=== PATIENT | male | born 1965 | race Caucasian/White ===

== ENCOUNTER 2016-09-13 20:21 | Emergency (ER) | payer MEDICARE ==
[~2016-09-13] VITALS: Ht 177.8 cm; Wt 63.4 kg
[2016-09-13] MEDS: BACITRACIN OINTMENT 0.9 GM PACKET TOP ONE ×2 (21:04→21:12)
[2016-09-13 21:20] VITALS: BP 107/76
== END 2016-09-13 21:15 | disposition home or self-care (01) ==
LOC: ED 20:22
DX: T23.201D Burn of second degree of right hand, unspecified site, subsequent encounter (principal); L85.8 Other specified epidermal thickening; E11.42 Type 2 diabetes mellitus with diabetic polyneuropathy; Z79.4 Long term (current) use of insulin; F17.210 Nicotine dependence, cigarettes, uncomplicated; X08.8XXD Exposure to other specified smoke, fire and flames, subsequent encounter
CPT/HCPCS: 99282; 99283

== ENCOUNTER 2016-10-04 18:33 | Emergency (ER) | payer MEDICARE ==
[~2016-10-04] VITALS: Ht 177.8 cm; Wt 63.7 kg
[2016-10-04] MEDS ORDERED: cefTRIAXone 1 GM (ROCEPHIN) VIAL IM ONE (20:15)
[2016-10-04] MEDS ORDERED: LIDOCAINE PF 1% (XYLOCAINE) 2 ML VIAL INJ ONE ×2 (20:33→20:35)
--- NOTE | 2016-10-04 20:55 | NUR ---
Rocephin given IM, not IV. No start and stop time.
[2016-10-04 20:59] VITALS: BP 115/76
== END 2016-10-04 20:52 | disposition home or self-care (01) ==
LOC: ED 18:34
DX: E11.622 Type 2 diabetes mellitus with other skin ulcer (principal); Z79.84 Long term (current) use of oral hypoglycemic drugs; F17.210 Nicotine dependence, cigarettes, uncomplicated; F10.129 Alcohol abuse with intoxication, unspecified; Y90.8 Blood alcohol level of 240 mg/100 ml or more
CPT/HCPCS: 96372; 99282; J0696; J2001

== ENCOUNTER 2016-10-10 21:24 | Emergency (ER) | payer MEDICARE ==
[~2016-10-10] VITALS: Ht 177.8 cm; Wt 63.6 kg
--- NOTE | 2016-10-10 21:45 | NUR ---
Pt scooting to the end of the bed, stating that he wants to leave, RN went in and spoke with pt, explained that he can leave AMA, RN can't keep him here, in the room as well, and explained that we can't keep pt here, and if he chooses to sign out AMA RN can't stop him. Pt does agree to stay and get some IV fluids, and wait for some labs to come back.
[2016-10-10] MEDS ORDERED: LORazepam 2 MG/ML (ATIVAN) 1 ML VIAL IV ONE ×2 (21:55→22:45)
[2016-10-10] MEDS ORDERED: MAGNESIUM SULFATE 1GM VIAL 2 GM, THIAMINE INJ 100 MG, MULTIVITAMIN INJ 10 ML in D5LR 1,... IV SCH (21:55)
[2016-10-10] MEDS ORDERED: MULTIVITAMINS (MVI) 2 5 ML VIALS IV ONE (21:57)
[2016-10-10] MEDS ORDERED: MAGNESIUM SULFATE 1 GM/2 ML VIAL ONE (21:57)
[2016-10-10] MEDS ORDERED: THIAMINE 100 MG/ML (VITAMIN B1) 2 ML VIAL ONE (21:57)
[2016-10-10] MEDS ORDERED: KETOROLAC 15 MG/ML (TORADOL) 1 ML VIAL IV ONE (22:00)
[2016-10-10 22:01] LABS: BASOPHILS % (AUTO) 1 % (0-2); EOSINOPHILS % (AUTO) 0 % (0-4); LYMPHOCYTES # (AUTO) 1.6 X10^3; MEAN CORPUSCULAR VOLUME 89 FL (80-100); MEAN PLATELET VOLUME 9.2 FL (6.0-9.5); MONOCYTES # (AUTO) 1.1 X10^3; MONOCYTES % (AUTO) 13 % (3-11); NEUTROPHILS % (AUTO) 68 % (51-67); PLATELET COUNT 229 10^3uL (150-450); WHITE BLOOD COUNT 8.74 10^3uL (4.0-11.0)
[2016-10-10 22:09] LABS: ALBUMIN 4.3 g/dL (3.4-5.0); ANION GAP 17.5 MEQ/L (3-15); CALCULATED IONIZED CALCIUM 3.6 mg/dL (3.8-4.6); TOTAL PROTEIN 8.1 g/dL (6.4-8.5)
[2016-10-10 22:14] LABS: MEAN CORPUSCULAR HEMOGLOBIN 33.3 PG (26.0-34.0); MEAN CORPUSCULAR HGB CONC 37.6 g/dL (31.0-37.0)
--- NOTE | 2016-10-10 22:30 | NUR ---
Pt awake, had been resting, pt appears anxious, and is wanting to go home, pt asked if he could have some more Ativan, told pt RN would ask the , and would bring it if he is ok with it
--- NOTE | 2016-10-10 22:43 | NUR ---
Pt given Ativan per DR. post
[2016-10-10 22:59] LABS: BILIRUBIN,URINE Negative (Negative); CLARITY,URINE Clear; COLOR,URINE Yellow; GLUCOSE, URINE (UA) Trace (Negative); LEUKOCYTE ESTERASE ,URINE Negative (Negative); UROBILINOGEN,URINE 0.2 mg/dL (0.2-1.0)
--- NOTE | 2016-10-10 23:30 | NUR ---
Pt resting at this time. Resp are easy and nonlabored. and pt earlier had said that pt has been having some difficulty with sleeping lately.
[2016-10-11 00:22] LABS: RBC,URINE 0-2 /HPF; URINE CENTRIFUGED VOLUME 12 mL
--- NOTE | 2016-10-11 01:00 | NUR ---
Pt awake, given a Coke to drink, and he wants to know why he isn't leaving yet, explained to pt and that the will look at his labs and be in as soon as possible to let him go or possibly stay.
--- NOTE | 2016-10-11 03:54 | NUR ---
Assisted pt into a wheelchair, he tolerated ok, and out to the vehicle.
[2016-10-11 06:28] VITALS: BP 153/96
== END 2016-10-11 03:54 | disposition home or self-care (01) ==
LOC: ED 21:24
DX: F10.229 Alcohol dependence with intoxication, unspecified (principal); E87.1 Hypo-osmolality and hyponatremia; Y90.8 Blood alcohol level of 240 mg/100 ml or more
CPT/HCPCS: 36415; 72100; 80053; 81003; 81015; 84443; 85025; 86140; 96361; 96365; 96375; 96376; 99283; G0480; J1885; J2060; J3411; J3475; J7030; 80320

== ENCOUNTER → 2016-10-10 | Outpatient (CLI) | payer MEDICARE | LOC: EMS 21:16 | PROVIDERS: ATTEND Emergency Medicine | DX: F10.129 Alcohol abuse with intoxication, unspecified (principal); R53.1 Weakness ==

== ENCOUNTER → 2016-10-19 | Outpatient (REF) | payer MEDICARE | LOC: LAB 10:02 | PROVIDERS: ATTEND Family Medicine | DX: E11.9 Type 2 diabetes mellitus without complications (principal) | CPT/HCPCS: 83036 ==

== ENCOUNTER → 2016-12-17 | Outpatient (REF) | payer MEDICARE ==
[~2016-12-17] MED LIST: AMOX-358 PO; AMT50T PO; GABA800T2 PO; GLIP10TA13 PO; HYDR-3811 PO; METF500T4 PO; METO-272 PO; METO100T2 PO; METO100T6 PO; MTP50T PO; MULT1TAB63 PO; NFLYR75C PO; OMEP20CA12 PO; OMEP20TA PO; SULF-14ED PO; THM100T PO
[2016-12-17 11:40] LABS: BASOPHILS % (AUTO) 0 % (0-2); EOSINOPHILS # (AUTO) 0.1 10^3uL; EOSINOPHILS % (AUTO) 1 % (0-4); LYMPHOCYTES # (AUTO) 1.4 X10^3; MEAN CORPUSCULAR HGB CONC 34.2 g/dL (31.0-37.0); MEAN CORPUSCULAR VOLUME 96 FL (80-100); MEAN PLATELET VOLUME 10.1 FL (6.0-9.5); MONOCYTES # (AUTO) 0.8 X10^3; MONOCYTES % (AUTO) 9 % (3-11); NEUTROPHILS # (AUTO) 6.8 X10^3; NEUTROPHILS % (AUTO) 75 % (51-67); PLATELET COUNT 325 10^3uL (150-450); WHITE BLOOD COUNT 9.12 10^3uL (4.0-11.0)
[2016-12-17 11:44] LABS: MEAN CORPUSCULAR HEMOGLOBIN 32.7 PG (26.0-34.0)
[2016-12-17 11:47] LABS: ALBUMIN 3.7 g/dL (3.4-5.0); ANION GAP 18.6 MEQ/L (3-15); CALCULATED IONIZED CALCIUM 4.3 mg/dL (3.8-4.6); TOTAL PROTEIN 6.8 g/dL (6.4-8.5)
[2016-12-17 12:21] LABS: ERYTHROCYTE SEDIMENTATION RT* 19 mm/hr (0-12)
== END ==
LOC: LAB 11:10
PROVIDERS: ATTEND Family Medicine
DX: L03.116 Cellulitis of left lower limb (principal); T23.231A Burn of second degree of multiple right fingers (nail), not including thumb, initial encounter; E11.9 Type 2 diabetes mellitus without complications; G62.1 Alcoholic polyneuropathy; I10 Essential (primary) hypertension; F10.21 Alcohol dependence, in remission
CPT/HCPCS: 80053; 85025; 85652; 86140

== ENCOUNTER → 2016-12-20 | Outpatient (CLI) | payer MEDICARE ==
--- NOTE | 2016-12-20 16:18 | Diagnostic Imaging Report ---
INDICATION: Left leg fracture with left leg pain and swelling. EXAMINATION: Grayscale and color Doppler evaluation of the deep veins of the left lower extremity were performed with waveform analysis. FINDINGS: Continuous venous flow is present. No intraluminal filling defect is identified. There is normal compressibility and response to augmentation. No abnormal perivascular fluid collection is identified. Occasional prominent lymph nodes are noted in the left groin. IMPRESSION: No ultrasound evidence of left lower extremity deep venous thrombosis. Dictated by: Dictated on workstation # [id number]
== END ==
LOC: RAD 15:06
PROVIDERS: ATTEND Family Medicine
DX: M79.662 Pain in left lower leg (principal); S82.452 Displaced comminuted fracture of shaft of left fibula; X58.XXXD Exposure to other specified factors, subsequent encounter